=== PATIENT | female | born 1985 | race Caucasian/White ===

== ENCOUNTER 2017-12-27 07:00 | Day surgery (SDC) | payer BC ==
[2017-12-25 09:45] LABS: BASOPHILS 0.3 % (0-2); EOSINOPHILS 4.1 % (0-7); HEMOGLOBIN 13.4 g/dL (12-16); IMMATURE GRANULOCYTES 0.2 % (0-5); LYMPHOCYTES 30.3 % (15-50); MCHC 34.4 g/dL (31.0-37.0); MCV 84.4 fL (80.0-100.0); MEAN PLATELET VOLUME 9.5 fL (7.4-10.4); MONOCYTES 5.7 % (2-11); NEUTROPHILS 59.4 % (40-80); PLATELET COUNT 243 10x3/uL (130-400); RBC 4.62 10x6/uL (4.00-5.40); RDW 12.7 % (11.5-14.5); WBC 6.1 10x3/uL (4.8-10.8)
[2017-12-25 10:17] LABS: CALC OSMOLALITY 276 mosm/kg (275-300); CARBON DIOXIDE 29.6 mmol/L (21.0-32.0); CHLORIDE - SERUM 103 mmol/L (98-107); CREATININE - SERUM 0.9 mg/dL (0.6-1.3); GLUCOSE 101 mg/dL (74-106); POTASSIUM - SERUM 3.9 mmol/L (3.5-5.1); SODIUM 139 mmol/L (136-145); UREA NITROGEN 11 mg/dL (7-18); eGFR NON AFRICAN AMERICAN 76 mL/min (90-120)
[~2017-12-27] VITALS: Ht 165.1 cm; Wt 115.7 kg
--- NOTE | ~2017-12-27 | OP ---
PATIENT NAME: NICOLE ALCANTAR MEDICAL RECORD: [id number] :83 LOCATION:.[facility] ADMISSION DATE: SURGEON: LESLIE MUELLER MD DATE OF OPERATION: 12/27/2017 PREOPERATIVE DIAGNOSIS: High-grade cervical dysplasia. POSTOPERATIVE DIAGNOSIS: High-grade cervical dysplasia. PROCEDURE: Loop electrosurgical excision procedure. SURGEON: Leslie Mueller MD ANESTHESIA: General. INTRAVENOUS FLUIDS: Per anesthesia records. FINDINGS: 1. Grossly normal-appearing external genitalia. 2. Grossly normal-appearing cervix. SPECIMENS: Cervical cone biopsy. COMPLICATIONS: None apparent. PROCEDURE IN DETAIL: The patient was taken to the operating room where general anesthesia was achieved without difficulty. The patient was then prepped and draped in normal sterile fashion in the dorsal lithotomy position in the [facility]. At this point, the patient was prepped and draped. The bladder was drained of approximately 100 cc of clear yellow urine and an insulated Graves speculum was placed into the vagina. The cervix was identified and a 2 x 1 cm loop electrode was then used to excise an approximately 10-mm deep section of the transitional zone. The crater was then cauterized using the ball tip bipolar cautery until good hemostasis was achieved. Monsel solution was placed on the surgical site with good hemostasis again noted. The speculum was then removed. The patient was transported to postanesthesia recovery stable without incident. TRANSINT:[id number] Voice Confirmation ID: [id number] DOCUMENT ID: [id number] LESLIE MUELLER MD at 1550 CC: [id number] DICTATION DATE: 01/12/18 0736 TRANSPORT MEDIC: 01/12/18 0828 [facility] [place] 12/27/17 [facility] [address] [id number]
[~2017-12-27 07:00] MED LIST: CELEXA20 MG PO; HYDROCHLOROTH12.5 M1 PO
[2017-12-27 08:23] VITALS: BP 147/91; Ht 165.1 cm; Wt 115.7 kg
[2017-12-27 08:57] LABS: HCG URINE NEGATIVE (NEGATIVE)
== END 2017-12-27 14:10 | disposition home or self-care (01) ==
LOC: D.OPS 07:00 → D.PAN 08:15 → D.OPS 08:15 → D.PAN 08:35 → D.OPS 09:15
PROVIDERS: Anesthesiology; Obstetrics & Gynecology
DX: D06.0 Carcinoma in situ of endocervix (principal); F17.200 Nicotine dependence, unspecified, uncomplicated; Z79.899 Other long term (current) drug therapy; Z01.812 Encounter for preprocedural laboratory examination